=== PATIENT | female | born 1975 | race Caucasian/White ===

== ENCOUNTER 2018-11-01 07:00 | Day surgery (SDC) | payer OTHER ==
[~2018-11-01] VITALS: Ht 162.6 cm; Wt 75.3 kg
[~2018-11-01 07:00] MED LIST: LISINOPRIL10 MG
[2018-11-02] MEDS ORDERED: PERCOCET 5-3251 EACH PO (05:12)
== END 2018-11-02 08:00 | disposition home or self-care (01) ==
LOC: CIR.AMB 07:00 → SURH 08:15 → EDSTATUS 08:15 → SURH 08:45 → O/R 10:41 → OB/GYN 10:41 → O/R 11:01 → CIR.AMB 11-02 08:00 → OB/GYN 11-02 08:38 → O/R 11-02 08:38
DX: D25.2 Subserosal leiomyoma of uterus (principal); N92.0 Excessive and frequent menstruation with regular cycle; N72 Inflammatory disease of cervix uteri; N80.0 Endometriosis of uterus; I10 Essential (primary) hypertension